=== PATIENT | female | born 1970 | race Caucasian/White ===

== ENCOUNTER 2019-03-03 01:17 | Emergency (ER) | payer OTHER ==
[~2019-03-03] VITALS: Ht 157.5 cm; Wt 97.5 kg
[2019-03-03 04:34] VITALS: BP 132/78
== END 2019-03-03 04:38 | disposition home or self-care (01) ==
LOC: M.ERS 01:17
DX: S05.11XA Contusion of eyeball and orbital tissues, right eye, initial encounter (principal); M25.511 Pain in right shoulder; W01.0XXA Fall on same level from slipping, tripping and stumbling without subsequent striking against object, initial encounter; Y92.000 Kitchen of unspecified non-institutional (private) residence as the place of occurrence of the external cause; Y99.0 Civilian activity done for income or pay; Y99.8 Other external cause status